=== PATIENT | female | born 1990 | race African-American/Black ===

== ENCOUNTER 2017-06-21 11:48 | Emergency (ER) | payer MEDICAID ==
[~2017-06-21] VITALS: Ht 152.4 cm; Wt 88.5 kg
[2017-06-21 11:50] VITALS: BP_SYST 125
--- NOTE | 2017-06-21 11:50 | NUR ---
Patient triaged and placed in waiting room. VSS and patient appears in no acute distress at this time. Accompanied by SELF, awaiting available bed, and MD notified of need for MSE.
[2017-06-21 13:26] LABS: BILIRUBIN,URINE NEGATIVE (NEGATIVE); BLOOD, URINE NEGATIVE (NEGATIVE); CLARITY/URINE CLEAR (CLEAR); COLOR,URINE YELLOW (YELLOW); GLUCOSE,URINE NEGATIVE (NEGATIVE); KETONES,URINE NEGATIVE (NEGATIVE); LEUKOCYTE ESTERASE ,URINE NEGATIVE (NEGATIVE); NITRITE, URINE NEGATIVE (NEGATIVE); PH,URINE 6.5 (5.0-8.0); PROTEIN URINE NEGATIVE (NEGATIVE); UROBILINOGEN,URINE 0.2 (0.2-1.0)
--- NOTE | 2017-06-21 13:31 | NUR ---
BROUGHT BACK TO BED #6 AND REPORT GIVEN TO BEVERLEY
[2017-06-21] MEDS ORDERED: NACL 0.9% 1,000 ML IV ONE (13:40)
--- NOTE | 2017-06-21 13:40 | NUR ---
ER at bedside examining patient.
[2017-06-21] MEDS ORDERED: KETOROLAC TROMETHAMINE 30 MG VIAL IVP ONE ×2 (13:45)
--- NOTE | 2017-06-21 13:53 | NUR ---
Pt complains of left flank pain that radiates to the abdomen. Pt denies vomiting, fever or dysuria, has some nauea. Pt was able to ambulate into the ER with no noted difficulty. No other injuries/complaints per pt or noted.
[2017-06-21 14:00] LABS: BASOPHILS # (AUTO) 0.1 K/uL (0.0-0.2); BASOPHILS % (AUTO) 0.6 % (0.0-2.0); EOSINOPHILS # (AUTO) 0.9 K/uL (0.0-0.4); EOSINOPHILS % (AUTO) 9.7 % (0.0-4.0); HEMATOCRIT 41.9 % (36-48); LYMPHOCYTES # (AUTO) 1.6 K/uL (1.0-5.5); MEAN CORPUSCULAR HEMOGLOBIN 28 pg (27-31); MEAN CORPUSCULAR HGB CONC 33 % (32-36); MEAN CORPUSCULAR VOLUME 84 fL (79.0-98.0); MONOCYTES # (AUTO) 0.5 K/uL (0.0-1.0); MONOCYTES % (AUTO) 5.7 % (1.7-9.3); NEUTROPHILS # (AUTO) 6.1 K/uL (1.8-7.7); PLATELET COUNT (AUTO) 228 K/uL (130-430); RED BLOOD CELL COUNT(AUTO) 4.99 MIL/uL (4.2-6.2); WHITE BLOOD COUNT (AUTO) 9.2 K/uL (4.8-10.8)
[2017-06-21 14:10] LABS: CALCIUM 9.2 mg/dL (8.4-11.0); CREATININE 0.72 mg/dL (0.55-1.30); POTASSIUM 3.6 mmol/L (3.5-5.1)
[2017-06-21 14:16] LABS: ALBUMIN 3.6 g/dL (3.4-4.8)
--- NOTE | 2017-06-21 15:29 | NUR ---
Pt complained of dizziness after CT scan, Dr Costa went in to assess the pt. Pt states pain level went down but is still 8/10.
[2017-06-21] MEDS ORDERED: HYDROmorphone 1 MG INJ. 1 MG/ML AMPUL IVP ONE (15:30)
--- NOTE | 2017-06-21 15:42 | NUR ---
Pain medication was given to the pt, no noted adverse reaction, will continue ot monitor.
--- NOTE | 2017-06-21 16:10 | NUR ---
Note undone in EDM - 06/21/17 at 1634 by EMELIA Patient given written and verbal discharge instructions and verbalizes understanding. ER MD discussed with patient the results and treatment provided. Patient in stable condition. ID arm band removed. IV catheter removed intact and dressing applied, no active bleeding. Rx of Tylenol with Codeine and Zofran given. Patient educated on pain management and to follow up with PMD. Pain Scale /10. Pt leaves ER ambulatory with ride. Opportunity for questions provided and answered.
--- NOTE | 2017-06-21 16:20 | NUR ---
Pt states that she doesn't feel well. Denies c/o pain. Dr. Costa at bedside. Meal tray ordered.
[2017-06-21] MEDS ORDERED: ONDANSETRON HCL 4 MG/2 ML VIAL IM ONE (17:15)
--- NOTE | 2017-06-21 17:15 | NUR ---
Pt still feeling dizzy and wanted to lay in the bed.
--- NOTE | 2017-06-21 17:53 | NUR ---
Zofran was given IM, no noted adverse reaction, will continue to monitor.
--- NOTE | 2017-06-21 18:15 | NUR ---
Patient given written and verbal discharge instructions and verbalizes understanding. ER MD discussed with patient the results and treatment provided. Patient in stable condition. ID arm band removed. Rx of zofran and tylenol with codeine given. Patient educated on pain management and to follow up with PMD. Pain Scale 2. Pt states is feeling much better and ready to go home. Opportunity for questions provided and answered.
[2017-06-21 18:17] VITALS: BP_SYST 125
== END 2017-06-21 18:15 | disposition home or self-care (01) ==
LOC: SED 11:48
DX: K42.9 Umbilical hernia without obstruction or gangrene (principal); R10.9 Unspecified abdominal pain; J45.909 Unspecified asthma, uncomplicated; E03.9 Hypothyroidism, unspecified; Z88.1 Allergy status to other antibiotic agents
CPT/HCPCS: 36415; 74176; 80053; 81003; 81025; 82150; 83690; 85025; 85610; 85730; 96361; 96372; 96374; 96375; 99285; J1170; J1885; J2405; J7030

== ENCOUNTER 2017-09-27 18:14 | Emergency (ER) | payer MEDICAID ==
[~2017-09-27] VITALS: Ht 152.4 cm; Wt 90.7 kg
[2017-09-27 18:22] VITALS: BP_SYST 153
[2017-09-27] MEDS ORDERED: ALBUTEROL SULFATE 0.083% 2.5 MG/3 ML VIAL.NEB IH ONE (19:00)
[2017-09-27] MEDS ORDERED: MAGNESIUM SULFATE 50 ML IV ONE (19:00)
[2017-09-27] MEDS ORDERED: methylPREDNISolone SOD SUCC/PF 62.5 MG/ML VIAL IVP ONE (19:00)
[2017-09-27] MEDS ORDERED: IPRATROPIUM BROM 0.5 MG/2.5 ML VIAL.NEB (ATROVENT) IH ONE (19:00)
[2017-09-27 19:27] VITALS: BP_SYST 149
== END 2017-09-27 19:27 | disposition home or self-care (01) ==
LOC: SED 18:14
DX: J45.901 Unspecified asthma with (acute) exacerbation (principal); J40 Bronchitis, not specified as acute or chronic; R03.0 Elevated blood-pressure reading, without diagnosis of hypertension; E03.9 Hypothyroidism, unspecified; Z86.14 Personal history of Methicillin resistant Staphylococcus aureus infection; Z88.1 Allergy status to other antibiotic agents
CPT/HCPCS: 94640; 96374; 96375; 99284; J2930; J3475

== ENCOUNTER 2017-11-16 19:19 | Emergency (ER) | payer MEDICAID ==
[~2017-11-16] VITALS: Ht 152.4 cm; Wt 90.7 kg
[2017-11-16 19:20] VITALS: BP_SYST 157
[2017-11-16 23:34] VITALS: BP_SYST 148
== END 2017-11-16 23:34 | disposition home or self-care (01) ==
LOC: SED 19:19
DX: J02.8 Acute pharyngitis due to other specified organisms (principal); B96.89 Other specified bacterial agents as the cause of diseases classified elsewhere; J45.909 Unspecified asthma, uncomplicated; E07.9 Disorder of thyroid, unspecified; Z86.14 Personal history of Methicillin resistant Staphylococcus aureus infection; Z88.1 Allergy status to other antibiotic agents
CPT/HCPCS: 70360-TC; 71045; 81025; 99284

== ENCOUNTER 2018-06-01 17:12 | Emergency (ER) | payer MEDICAID ==
[~2018-06-01] VITALS: Ht 152.4 cm; Wt 90.7 kg
[2018-06-01 17:12] VITALS: BP_SYST 155
--- NOTE | 2018-06-01 17:12 | NUR ---
BROUGHT BACK TO BED #7 AND TRIAGED, REPORT GIVEN TO COLTEN
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
--- NOTE | 2018-06-01 17:25 | NUR ---
ER Dr. Quezaad at bedside examining patient.
[2018-06-01] MEDS ORDERED: KETOROLAC TROMETHAMINE 60 MG/2 ML VIAL IM ONE (17:30)
[2018-06-01] MEDS ORDERED: LORazepam 1 MG TABLET PO ONE (17:30)
--- NOTE | 2018-06-01 17:36 | NUR ---
PATIENT STATES UNABLE TO PEE AT THIS TIME, PATIENT STATES SHE HAS TAKEN TEST WITHIN THE LAST 2 WEEKS, AND IT WAS NEGATIVE. INFORMED RADIOLOGY TO SHEILD PATIENT FOR RADIOLOGY TESTING.
--- NOTE | 2018-06-01 17:50 | NUR ---
RADIOLOGY AT BEDSIDE FOR EXAM.
--- NOTE | 2018-06-01 18:01 | NUR ---
Medication given to pt, tolerated well
--- NOTE | 2018-06-01 18:20 | NUR ---
Patient informed of need for ride. Patient encouraged to call related to medication and risk for sleepiness. Patient attempting to call friends for ride. Patient states she feels fine at this time.
[2018-06-01 20:43] VITALS: BP_SYST 132
--- NOTE | 2018-06-01 20:43 | NUR ---
Patient given written and verbal discharge instructions and verbalizes understanding. ER MD discussed with patient the results and treatment provided. Patient in stable condition. ID arm band removed. Rx of Ativan given. Patient educated on pain management and to follow up with PMD with this week for reevaluation. Pain Scale 0/10 Opportunity for questions provided and answered. Medication side effect fact sheet provided. Patient informed of the risks of driving with Ativan. Patient states that she has a friend waiting for her outside the ED. Patient observed walking with steady gait.
== END 2018-06-01 20:43 | disposition home or self-care (01) ==
LOC: SED 17:12
DX: R07.89 Other chest pain (principal); J45.909 Unspecified asthma, uncomplicated; E03.9 Hypothyroidism, unspecified; F41.9 Anxiety disorder, unspecified; R03.0 Elevated blood-pressure reading, without diagnosis of hypertension; Z86.14 Personal history of Methicillin resistant Staphylococcus aureus infection; Z88.1 Allergy status to other antibiotic agents
CPT/HCPCS: 71045; 93005; 96372; 99284; J1885

== ENCOUNTER 2019-03-30 18:58 | Emergency (ER) | payer MEDICAID ==
[~2019-03-30] VITALS: Ht 152.4 cm; Wt 90.7 kg
[2019-03-30 19:06] VITALS: BP_SYST 135
--- NOTE | 2019-03-30 19:06 | NUR ---
Patient to ER bed 8 to gown for evaluation. Side rails up. Report given to ANITHA Hugo.
--- NOTE | 2019-03-30 19:32 | NUR ---
Patient complaining of bilateral hand rash x 2 weeks worsening the last 5 days. Reports feeling hot but denies fevers. No other complaints/injuries per patient or as noted. Will continue to monitor.
--- NOTE | 2019-03-30 20:05 | NUR ---
ER Dr. Hernandez at bedside examining patient.
[2019-03-30] MEDS ORDERED: PREDNISONE 20 MG TABLET PO ONE (21:15)
[2019-03-30 21:30] LABS: BASOPHILS # (AUTO) 0.2 K/uL (0.0-0.2); BASOPHILS % (AUTO) 1.2 % (0.0-2.0); EOSINOPHILS # (AUTO) 1.4 K/uL (0.0-0.4); EOSINOPHILS % (AUTO) 10.7 % (0.0-4.0); HEMATOCRIT 41.8 % (36-48); HEMOGLOBIN 14.2 g/dL (12.0-16.0); LYMPHOCYTES # (AUTO) 2.9 K/uL (1.0-5.5); LYMPHOCYTES % (AUTO) 22.3 % (20.5-51.5); MEAN CORPUSCULAR HEMOGLOBIN 28 pg (27-31); MEAN CORPUSCULAR HGB CONC 34 % (32-36); MEAN CORPUSCULAR VOLUME 83 fL (79.0-98.0); MONOCYTES # (AUTO) 0.7 K/uL (0.0-1.0); MONOCYTES % (AUTO) 5.6 % (1.7-9.3); NEUTROPHILS # (AUTO) 7.9 K/uL (1.8-7.7); NEUTROPHILS % (AUTO) 60.2 % (40.0-70.0); PLATELET COUNT (AUTO) 254 K/uL (130-430); RED BLOOD CELL COUNT(AUTO) 5.02 MIL/uL (4.2-6.2); RED CELL DISTRIBUTION WIDTH 14.1 % (9.0-15.0); WHITE BLOOD COUNT (AUTO) 13.2 K/uL (4.8-10.8)
[2019-03-30 21:44] LABS: CALCIUM 9.8 mg/dL (8.4-11.0); CREATININE 0.7 mg/dL (0.55-1.30); POTASSIUM 3.7 mmol/L (3.5-5.1)
--- NOTE | 2019-03-30 22:23 | NUR ---
Patient given written and verbal discharge instructions and verbalizes understanding. ER MD discussed with patient the results and treatment provided. Patient in stable condition. ID arm band removed. Rx of triamcinolone-acetonide cream given. Patient educated on pain management and to follow up with PMD. Pain Scale 0/10. Opportunity for questions provided and answered. Medication side effect fact sheet provided.
[2019-03-30 22:26] VITALS: BP_SYST 125
== END 2019-03-30 22:26 | disposition home or self-care (01) ==
LOC: SED 18:58
DX: L30.9 Dermatitis, unspecified (principal); J45.909 Unspecified asthma, uncomplicated; E03.9 Hypothyroidism, unspecified; Z88.1 Allergy status to other antibiotic agents
CPT/HCPCS: 36415; 80048; 81025; 85025; 99283; J7512